=== PATIENT | female | born 1980 | race African-American/Black ===

== ENCOUNTER 2017-04-13 11:04 | Emergency (ER) | payer OTHER ==
[~2017-04-13] VITALS: Ht 180.3 cm; Wt 76.2 kg
[2017-04-13] MEDS ORDERED: MOTRIN600 MG PO (14:17)
[2017-04-13 14:28] VITALS: BP 112/73
== END 2017-04-13 14:28 | disposition home or self-care (01) ==
LOC: EME 11:04
DX: G56.21 Lesion of ulnar nerve, right upper limb (principal)
CPT/HCPCS: 99281; 99283